=== PATIENT | male | born 1985 | race Caucasian/White ===

== ENCOUNTER → 2022-01-31 | Outpatient (CLI) | payer OTHER, SELFPAY ==
[2022-01-31 12:22] LABS: Absolute Lymphocyte Count 1.88 X10^3/uL (0.83-4.51); Absolute Neutrophil Count 4.6 X10^3/uL (2.0-7.7); Basophil# 0.05 X10^3/uL; Basophil% 0.7 % (0-1); Eosinophil# 0.19 X10^3/uL; Eosinophils% 2.6 % (0-5); Hematocrit 47.3 % (40-54); Hemoglobin 16.1 g/dL (13.0-16.5); Lymphocyte # 1.88 X10^3/ul (0.83-4.51); Lymphocyte % 25.8 % (19-41); Mean Corpuscular Hgb 30.8 pg (27.0-32.0); Mean Corpuscular Volume 90.6 fL (80-94); Mean Platelet Vol. 11.3 fl (6.2-12.0); Monocyte# 0.54 X10^3/uL; Monocyte% 7.4 % (0-10); NRBC Flagged by Analyzer 0 % (0-5); Neutrophil % 63.2 % (47-70); Platelet Count 295 K/mm3 (150-450); RBC Distribution Width CV 12.3 % (11.6-14.6); RBC Distribution Width SD 40.1 fl (35.1-43.9); Red Blood Count 5.22 M/mm3 (4.6-6.2); White Blood Count 7.3 K/mm3 (4.4-11.0)
[2022-01-31 13:41] LABS: ALB/GLOB Ratio 1.4 RATIO (0.9-2.4); AST(SGOT) 19 U/L (15-37); Alanine Aminotransfer ALT/SGPT 29 U/L (16-61); Albumin, Serum 4.7 g/dL (3.2-5.0); Alkaline Phosphatase 83 U/L (45-117); Anion Gap 5 (5-15); BUN 13 mg/dL (7-18); BUN/Creat Ratio 15.9 RATIO (10-20); Calcium,Total 9.9 mg/dL (8.5-10.1); Chloride 104 mmol/L (98-107); Cholesterol 193 mg/dL (200); Creatinine, Serum 0.82 mg/dL (0.70-1.30); EST Glomerular Filtration Rate 113 mL/min (>60); Est Glom Filt Rate - Afr Amer 137 mL/min (>60); Globulin 3.4 g/dL (2.2-4.2); Glucose 100 mg/dL (74-106); High Density Lipoprotein 45 mg/dL; Potassium 4.7 mmol/L (3.5-5.1); Protein, Total 8.1 g/dL (6.4-8.2); Sodium Level 137 mmol/L (136-145); Triglycerides 178 mg/dL; Very Low Density Lipoprotein 36 mg/dL (5-40)
== END | disposition home or self-care (01) ==
LOC: BIMLAB 09:06
PROVIDERS: PCP Internal Medicine; Referring Provider Internal Medicine; Visit Provider Internal Medicine
DX: Z13.6 Encounter for screening for cardiovascular disorders (principal); R06.02 Shortness of breath
CPT/HCPCS: 36415; 80053; 80061; 85025

== ENCOUNTER → 2022-02-03 | Outpatient (CLI) | payer OTHER, SELFPAY ==
--- NOTE | 2022-02-03 06:51 | EKG12_ITS ---
Test Reason : SOB Blood Pressure : / mmHG Vent. Rate : 065 BPM Atrial Rate : 065 BPM P-R Int : 116 ms QRS Dur : 094 ms QT Int : 368 ms P-R-T Axes : 021 073 058 degrees QTc Int : 382 ms Normal sinus rhythm with sinus arrhythmia Nonspecific ST abnormality Abnormal ECG Confirmed by DES ASTORGA, JOSE D ([id number]), web editor MURPHY MONTEZ ([id number]) on 02/06/2022 9:25:54 AM Referred By: Nancy Chaparro Confirmed By:PARIS NUNES MD
--- NOTE | 2022-02-06 07:09 | PFT ---
INTRODUCTION: The patient is a 36-year-old male that presents for pulmonary function studies secondary to a diagnosis of shortness of breath. Respiratory therapy reported good patient effort. Bronchodilators were used during testing. INTERPRETATION: Forced expiration spirometry demonstrates the presence of a moderate large airways obstructive ventilatory defect. There was no significant response to aerosolized bronchodilators. Spirograms are of good quality and plateau slowly indicating slow emptying of the lungs. Body plethysmography was performed and revealed a decreased TLC to 6.96 L, 87% of predicted, indicative of a mild restrictive ventilatory impairment. Diffusing capacity by single breath CO is within normal limits. IMPRESSION: Irreversible moderate mixed ventilatory defect with preserved diffusing capacity.
== END | disposition home or self-care (01) ==
PROVIDERS: PCP Internal Medicine; Referring Provider Internal Medicine; Visit Provider Internal Medicine
DX: R06.02 Shortness of breath (principal)
CPT/HCPCS: 93005; 94060; 94726; 94729

== ENCOUNTER → 2022-02-20 | Outpatient (CLI) | payer OTHER, SELFPAY ==
--- NOTE | 2022-02-20 17:38 | CT_ITS ---
EXAM: CT CHEST WITH INTRAVENOUS CONTRAST CLINICAL INDICATION: flattening of FVL and eval for obstruction TECHNIQUE: Helically acquired images were obtained of the chest with intravenous contrast. This CT exam was performed using one or more of the following dose reduction techniques: automated exposure control, adjustment of the mA and/or kV according to patient size, and/or use of iterative reconstruction technique. This report was created using [employer] report generation technology. CONTRAST: IV 100mL Isovue-370 RADIATION DOSE: Total DLP: 619.54 mGy-cm. COMPARISON: None. FINDINGS: LUNGS AND PLEURAL SPACES: Small calcified granuloma laterally within the right lower lobe. Additional 4 mm subpleural nodule posteriorly in the right lower lobe, partially obscured by motion artifact and probably an additional granuloma; this requires no follow-up. No patchy pneumonia or pleural effusion. HEART: Unremarkable. Heart size is normal. No pericardial effusion. No significant coronary artery calcifications. MEDIASTINUM: Calcified right hilar lymph nodes from remote granulomatous infection. No hilar or mediastinal adenopathy. Esophagus is unremarkable. No hiatal hernia. No mediastinal shift. THYROID: Unremarkable. No thyroid lesions. BONES/JOINTS: Thoracic degenerative spurring. No acute osseous abnormality. No suspicious lytic or blastic abnormality. VASCULATURE: Unremarkable. Thoracic aorta is non-dilated. No thoracic aortic dissection. No obvious central pulmonary embolism although this study was not performed with the pulmonary embolism protocol. GALLBLADDER AND BILE DUCTS: Mild fatty infiltration of the liver. Gallbladder is partially contracted. No calcified gallstones or biliary ductal dilatation. Visualized portions of the spleen, pancreas, adrenal glands, and renal upper poles are unremarkable. No pneumoperitoneum is noted. OTHER: Trachea, mainstem bronchi and proximal branches are widely patent. CT/Chest WITH Contrast IMPRESSION: Findings of remote granulomatous infection. No acute findings in the chest. Electronically Signed: Mychal Tello MD at 0:54 EDT ,
== END | disposition home or self-care (01) ==
LOC: CT 17:35
PROVIDERS: PCP Internal Medicine; Referring Provider Internal Medicine Critical Care Medicine; Visit Provider Internal Medicine Critical Care Medicine
DX: R06.02 Shortness of breath (principal)
CPT/HCPCS: 71260; Q9967

== ENCOUNTER → 2022-03-07 | Outpatient (CLI) | payer OTHER, SELFPAY ==
--- NOTE | 2022-03-07 14:49 | ECHOD_ITS ---
Reason For Study: MURMUR Procedure This was a 2D Doppler, Color Flow transthoracic echocardiogram. The exam was of adequate technical quality. Exam performed in department. Left Ventricle Normal LV size. Left ventricular systolic function is normal. The estimated ejection fraction is 65 %. No evidence for diastolic dysfunction. No regional wall motion abnormalities noted. Right Ventricle Normal RV size. The right ventricle is normal in size, function, and thickness. Atria Normal left atrium. Normal right atrium. No doppler evidence for ASD. Mitral Valve There is no mitral annular calcification. Normal mitral valve. Trivial mitral valve insufficiency. Tricuspid Valve Normal tricuspid valve. Trivial tricuspid valve insufficiency. Unable to estimate RV systolic pressure due to insufficient tricuspid regurgitant envelope. Aortic Valve Trisinus/trileaflet aortic valve. Normal aortic valve. Pulmonic Valve The pulmonic valve is not well visualized. Trivial pulmonic valve insufficiency. Great Vessels Normal sized aortic root. Pericardium/Pleural No pericardial effusion. MMode/2D Measurements & Calculations LVIDd: 5.5 cm IVSd: 0.99 cm Ao root diam: 2.9 cm LVIDs: 3.6 cm LVPWd: 0.90 cm RVDd: 3.0 cm FS: 34.5 % LAV(MOD-bp): 45.1 ml LVAd ap4: 33.8 cm2 LVAd ap2: 34.9 cm2 LAV(MOD-bp) Indexed: 20.3 ml/m2 LVLd ap4: 8.5 cm LVLd ap2: 8.9 cm LAV(MOD-sp2): 55.9 ml EDV(MOD-sp4): 115.0 ml EDV(MOD-sp2): 117.9 ml LAV(MOD-sp4): 29.0 ml EDV(sp4-el): 114.2 ml EDV(sp2-el): 116.2 ml LVAs ap4: 19.3 cm2 LVAs ap2: 18.2 cm2 LVLs ap4: 7.0 cm LVLs ap2: 7.2 cm ESV(MOD-sp4): 47.8 ml ESV(MOD-sp2): 39.8 ml ESV(sp4-el): 45.4 ml ESV(sp2-el): 39.3 ml EF(MOD-sp4): 58.4 % EF(MOD-sp2): 66.2 % EF(sp4-el): 60.2 % SV(MOD-sp4): 67.1 ml SV(MOD-sp2): 78.1 ml SV(sp4-el): 68.8 ml LA dimension(2D): 3.9 cm LA A4 area: 11.5 cm2 RA A4 area: 12.1 cm2 Time Measurements MV dec time: 0.22 sec Doppler Measurements & Calculations MV E max griffin: 62.6 cm/sec Lat Peak E' Griffin: 20.4 cm/sec Med Peak E' Griffin: 13.5 cm/sec MV A max griffin: 54.7 cm/sec E/E' lat: 3.1 E/E' med: 4.6 MV E/A: 1.1 MV dec slope: 316.1 cm/sec2 Ao V2 max: 124.5 cm/sec LV V1 max: 115.0 cm/sec Ao max P.2 mmHg LV V1 max P.3 mmHg Ao V2 mean: 87.1 cm/sec LV V1 mean P.5 mmHg Ao mean P.5 mmHg LV V1 mean: 74.6 cm/sec Ao V2 VTI: 25.5 cm LV V1 VTI: 20.7 cm PA V2 max: 115.5 cm/sec ECHO/Echo Complete Interpretation Summary Left ventricular systolic function is normal. The estimated ejection fraction is 65 %. Trivial mitral valve insufficiency. Trivial tricuspid valve insufficiency. Trivial pulmonic valve insufficiency. Unable to estimate RV systolic pressure due to insufficient tricuspid regurgita nt envelope. No evidence for diastolic dysfunction. Ordering Physician: Janusz Bravo Referring Physician: Vicky Chaparro Performed By: America Peace, EN, RVT
== END | disposition home or self-care (01) ==
LOC: CVS 14:49
PROVIDERS: PCP Internal Medicine; Referring Provider Internal Medicine Critical Care Medicine; Visit Provider Internal Medicine Critical Care Medicine
DX: R06.02 Shortness of breath (principal)
CPT/HCPCS: 93306

== ENCOUNTER 2022-04-04 15:58 | Outpatient (RCR) | payer OTHER, SELFPAY ==
--- NOTE | 2022-04-05 16:31 | HP.SP.EVAL ---
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 Pt reports SOB began about 2 years. Pt reports starting home programs like exercising on the treadmill because he thought he needed to get back in shape. Pt works as heating/cooling contractor - reports at most he carries 50 lbs - and reports that he is very windy when he reaches the top of the stairs and it takes minutes for him to catch his breath. Pt reports pulse ox at home will be as low 84% at times. Pt reporting his PFT revealed his lungs compared to peers his age is at 65% capacity. Pt reporting granuloma in his lungs. Smoking Status: Never smoker - Pain Is pain an issue with your current prescribed condition?: No Patient Allergies - Allergies Allergies No Known Allergies Allergy (Verified 03/22/22 08:20) Subjective Voice - Intake Water (ounces): 48 Coffee (ounces): 192 - Alcoholic Beverage Intake Intake: Rarely Objective Voice - Observational Assessment Maximum Phonation Time in seconds: 5 seconds S/Z Ratio: 1.05 Sustained /s/: 5.6 Sustained /z/: 5.3 HDQLIFE - Speech Difficulties - In the past 7 days. It was difficult for other people to understand me.: Never Is was difficult to speak clearly?: Never - In the past 7 days.. How often did you limit your social activites because you had difficulty speaking?: Never - In the past 7 days... I had trouble speaking.: Not at all I was frustrated by my speech difficulties.: Not at all - How much DIFFICULTY do you have... ...saying what you want to say?: No difficulty - Score HDQLIFE Speech Difficulties Raw Score: 6 HDQLIFE Speech Difficulties T - Score: 38 Other - Other Education and Implementation -: Direct education also provided re: paying attention to moments throughout the day where we tend to not breathe (e.g., when in deep concentration, picking something up, climbing stairs, eating/drinking, standing up from a seated position). Encouraged Pt to be more cognizant of his breath and trying to implement purposeful breaths throughout his day in moments where he tends to not breathe. Direct education also provided re: diaphragmatic breathing and rescue breathing with detailed hand about vocal cord dysfunction along with instructions on both breathing techniques. Pt functional in participating in both of the breathing techniques. Pt benefited from min verbal cues to focus breath through his belly instead of his shoulders. Pt observed on a treadmill in the gym walking at 2.5 speed which was a general pace of a walk for him. Pt talking to therapist while walking. Around 5-6 minutes Pt reporting feeling some burning feelings in his throughout. Pt reports trialing the diaphragmatic breathing which helped to subside the burning feeling. After the treadmill, then observed Pt on 2 flights of stairs. Asked Pt to breath how he normally would prior to instruction from today and also take the stairs how he normally would. Pt climbing the stairs one at a time at a rapid pace (jog) and once he reached the top he was significantly SOB. Pt instinctively began breathing short, heavy breaths through his mouth while trying to talk to ST (to simulate a work situation). Encouraged Pt to pause his talking and implement diaphragmatic breathing -- his SOB subsided within 3-4 breaths. Pt reporting at baseline it would have taken him minutes to catch his breath while also attempting to talk with customers at work after he climbed the stairs. Trialed stairs again and asked Pt to use diaphragmatic breathing this time while climbing how he typically would (took 2 at a time d/t leg length). Pt climbed two flights with no SOB at the top of the stairs. Pt showing excitement of no SOB. Plan - Plan Plan: Will recommend Pt for skilled outpatient speech therapy to address deficits in vocal function characterized by suspected vocal cord dysfunction. Pt would benefit from training in identifying instances of vocal abuse, providing vocal hygiene solutions, training in diaphragmatic breathing, relaxation techniques, and direct education re: vocal health. Without skilled speech therapy Pt is at risk for pulmonary distress in a variety of social situations. - Recommendations Treatment Warranted: Yes Treatment Warranted: Voice - Progress Prognosis: Good - Frequency Frequency: 1x/Week Duration: 6 Weeks - Goals that are Established Determination:: Goals will be added/modified as deemed necessary and appropriate. Therapy will be discontinued when results of re-evaluation indicate therapy is no longer needed or lack of progress has been documented. - Goal #1-5 Goal #1: Jacob will establish volitional control of respiration evidenced by utilization of diaphragmatic and rescue breathing during structured tasks within 1 month of independent use with 90% accuracy. Goal #2: To reduce vocal fold tension, Jacob will demonstrate neck relaxation techniques with greater than 90% acc independently. Goal #3: Jacob will eliminate newly added environmental/behavioral factors (e.g., reduction of coffee intake, wearing a mask when exposed to second hand smoke) within 3 weeks? time of initial evaluation to determine their contribution to current vocal pathology. Goal #4: Jacob will complete a weekly log dictating instances of vocal cord dysfunction or moments of activities of not breathing including time of day, activity, and stress level on a scale of 1-5 with 1 being mild tension and 5 being complete airway closure. Goal #5: Jacob will establish volitional control of respiration evidenced by utilization of diaphragmatic breathing to sustain ah for 15-20 seconds within 4 weeks with 100% accuracy independently. Education - Patient has Indicated that the Following Identified Educational Needs: None The Patient has indicated that they have no educational or learning abilities that may effect their care.: Yes - Patient Instruction Patient Education: Diagnosis, Treatment Plan, Goals, Safety Precautions, Home Exercise Program Person Taught: Patient Teaching Method: Discussion, Demonstration, Handout, Protocol, Teach back
--- NOTE | 2022-07-31 11:51 | HP.SP.DC_ITS ---
ST Discharge Summary - Discharged: Discharge: SYL BARNETT is a 37 year old male was seen for initial voice evaluation at [facility] on 04/04/22 secondary to dx of suspected vocal cord dysfunction. Pt only attended initial evaluation which recommended relaxation techniques, diaphragmatic breathing, neck relaxation exercises, eliminate environmental and behavioral factors, keeping a weekly log of 'not breathing' instances, and keeping a weekly log of VCD occurrences. Pt being discharged from speech therapy caseload on this date, 07/31/2022, secondary to additional therapy sessions not being scheduled after evaluation. Attempted to reach out to Pt to schedule additional appts where Pt was agreeable, however none were scheduled. Thank you for allowing me to participate the care of your Pt. Will reevaluate at Pt?s request following script from physician.
== END 2022-04-04 19:00 | disposition home or self-care (01) ==
LOC: SP 15:58
PROVIDERS: PCP Internal Medicine; Referring Provider Nurse Practitioner Acute Care; Visit Provider Nurse Practitioner Acute Care
DX: J38.3 Other diseases of vocal cords (principal)
CPT/HCPCS: 92524

== ENCOUNTER → 2022-04-06 | Outpatient (CLI) | payer OTHER, SELFPAY ==
[2022-04-06 08:15] VITALS: PULSE 100; PULSE 102; PULSE 103; PULSE 104; PULSE 90; PULSE 91; PULSE 95; PULSE 99; O2SAT 94; O2SAT 95; O2SAT 96; O2SAT 98
--- NOTE | 2022-04-06 16:22 | PCM.PSN.6M ---
PSN 6 Minute Walk Test 6 Minute Walk Test 6 Minute Walk Test: 6 Minute Walk Test PSN:6-Minute Walk Test Start: 04/06/22 08:29 Freq: Status: Active Protocol: [id number] Document 04/06/22 08:15 EW (Rec: 04/06/22 08:35 EW [id number]) 6 Minute Walk Test Date Performed 04/06/22 Time Performed 08:15 Height 6 ft 2 in Weight: 92.986 kg Weight in Pounds 205.[address]: Janusz Bravo Assistive device used: None Pre-test Oxygen Delivery Method Room Air Pulse Ox (%) 98 Pulse Rate (60-100 beats/min) 91 Dyspnea Cindy Scale (0-10) 0 Exertion Cindy Scale (6-20) 6 1st minute Oxygen Delivery Method Room Air Pulse Ox (%) 95 Pulse Rate (60-100 beats/min) 100 2nd minute Oxygen Delivery Method Room Air Pulse Ox (%) 94 Pulse Rate (60-100 beats/min) 103 H 3rd minute Oxygen Delivery Method Room Air Pulse Ox (%) 95 Pulse Rate (60-100 beats/min) 102 H 4th minute Oxygen Delivery Method Room Air Pulse Ox (%) 94 Pulse Rate (60-100 beats/min) 104 H 5th minute Oxygen Delivery Method Room Air Pulse Ox (%) 96 Pulse Rate (60-100 beats/min) 95 6th minute Oxygen Delivery Method Room Air Pulse Ox (%) 96 Pulse Rate (60-100 beats/min) 99 Post-test Oxygen Delivery Method Room Air Pulse Ox (%) 98 Pulse Rate (60-100 beats/min) 90 Dyspnea Cindy Scale (0-10) 2 Exertion Cindy Scale (6-20) 8 Full Laps Walked 19 Partial Lap, Number of Tiles Walked 0 Total Distance Walked (ft) 1121 Interpretation Interpretation: The patient was able to ambulate 1121 feet over the course of 6 minutes on room air with no assistive devices or breaks. The patient experienced no significant desaturation, but did have a peak heart rate of 104 bpm. These findings are consistent with deconditioning. Recommendations Recommendations: No supplemental oxygen is indicated at this time.
== END | disposition home or self-care (01) ==
PROVIDERS: PCP Internal Medicine; Referring Provider Internal Medicine Critical Care Medicine; Visit Provider Internal Medicine Critical Care Medicine
DX: R06.02 Shortness of breath (principal)
CPT/HCPCS: 94618